=== PATIENT | female | born 1950 | race Caucasian/White ===

== ENCOUNTER → 2024-05-14 12:43 | Outpatient (REF) | payer MEDICARE, OTHER, SELFPAY | LOC: HWRAD 12:43 | PROVIDERS: ATTENDING PHYSICIAN Urology; FAMILY PHYSICIAN Preventive Medicine Obesity Medicine | DX: R33.9 Retention of urine, unspecified (principal); M62.89 Other specified disorders of muscle; N81.6 Rectocele; N39.42 Incontinence without sensory awareness | CPT/HCPCS: 76770; 76856 ==